=== PATIENT | female | born 1990 | race Caucasian/White ===

== ENCOUNTER 2022-07-02 10:19 | Outpatient (CLI) | payer BC | END 2022-07-02 12:17 | disposition home or self-care (01) | LOC: NST 10:19 | PROVIDERS: ATTEND Obstetrics & Gynecology | DX: Z34.83 Encounter for supervision of other normal pregnancy, third trimester (principal) ==

== ENCOUNTER 2022-07-09 14:12 | Inpatient (IN) | payer BC ==
[~2022-07-09] VITALS: Ht 167.6 cm; Wt 74.8 kg
[2022-07-12] MEDS ORDERED: PRENATABS RX T1 EACH PO (07:15)
== END 2022-07-14 14:32 | disposition home or self-care (01) | DRG 807 ==
LOC: EDUNIT# 14:45 → LDR 07-12 06:01 → OB/GYN 07-12 08:21
PROVIDERS: ADMIT Obstetrics & Gynecology Maternal & Fetal Medicine; ATTEND Obstetrics & Gynecology Maternal & Fetal Medicine
PROC: 10E0XZZ Delivery of Products of Conception, External Approach (ICD-10-PCS; principal; 2022-07-12)
PROC: 0UQG7ZZ Repair Vagina, Via Natural or Artificial Opening (ICD-10-PCS; 2022-07-12)
PROC: 4A1HXCZ Monitoring of Products of Conception, Cardiac Rate, External Approach (ICD-10-PCS; 2022-07-12)
DX: O71.4 Obstetric high vaginal laceration alone (principal); Z37.0 Single live birth; Z3A.39 39 weeks gestation of pregnancy; Z20.822 Contact with and (suspected) exposure to COVID-19

== ENCOUNTER 2024-03-15 10:03 | Outpatient (CLI) | payer BC ==
[~2024-03-15 10:03] MED LIST: PRENATABS RX T1 EACH PO
== END 2024-03-15 14:58 | disposition home or self-care (01) ==
LOC: NST 10:03
PROVIDERS: ATTEND Obstetrics & Gynecology
DX: Z34.83 Encounter for supervision of other normal pregnancy, third trimester (principal)

== ENCOUNTER 2024-03-21 22:02 | Inpatient (IN) | payer BC ==
[~2024-03-21] VITALS: Ht 167.6 cm; Wt 73.9 kg
[2024-03-21] VITALS (8 sets, daily range): BP systolic 118–140; BP diastolic 67–81
[2024-03-21] MEDS ORDERED: RINGERS SOLUTION,LACTATED 1,000 ML IV SCH (22:15)
[2024-03-21] MEDS ORDERED: CHLORHEXIDINE GLUCONATE 120 ML BOTTLE TOP SCH (22:45)
[2024-03-21] MEDS ORDERED: OXYTOCIN 1,000 ML IV SCH (22:45)
[2024-03-21] MEDS ORDERED: IBUprofen 400 MG TABLET PO PRN (22:45)
[2024-03-21] MEDS ORDERED: ERYTHROMYCIN BASE OPHT 1GM EACH TUBE OP ONE (23:15)
[2024-03-21 23:25] LABS: HEMATOCRIT 36.4 % (36.0-45.00); HEMOGLOBIN 13.1 g/dL (12.0-15.00); MEAN CELL VOLUME 87.7 fL (80.00-100.00); MEAN CORPUSCULAR HEMOGLOBIN 31.6 pg (27.00-32.0); MEAN CORPUSCULAR HGB CONC 36.1 g/dl (32.0-36.0); PLATELET COUNT 251 K/uL (150-450); RED BLOOD COUNT 4.15 M/uL (4.00-6.00)
[2024-03-21 23:31] LABS: INR < 0.93; PARTIAL THROMBOPLASTIN TIME 27.3 SECONDS (22.0-34.0); PROTHROMBIN TIME 9.8 SECONDS (9.0-11.5)
[2024-03-21 23:51] LABS: BILIRUBIN TOTAL 0.55 mg/dL (0.3-1.2); CREATININE SERUM 0.55 mg/dL (0.55-1.02); GFR 126.52; GLOBULINA 3.3 G/DL (2.4-3.5); POTASSIUM 3.77 mEq/L (3.5-5.1); TOTAL PROTEIN 6.3 gm/dL (6.4-8.2)
[2024-03-22 01:06] VITALS: BP 131/71
[2024-03-22 08:59] VITALS: BP 115/70
[2024-03-22] MEDS ORDERED: PNV,CALCIUM 72/IRON/FOLIC ACID 1 TAB TABLET PO SCH (09:00)
[2024-03-22 16:00] VITALS: BP 121/67
[2024-03-22] MEDS ORDERED: SENNA/DOCUSATE SODIUM 1 TAB TABLET PO SCH (21:00)
[2024-03-23 01:07] VITALS: BP 128/76
[2024-03-23 08:46] VITALS: BP 131/80
== END 2024-03-23 15:07 | disposition home or self-care (01) | DRG 807 ==
LOC: OB/GYN → LDR 22:02 → OB/GYN 23:24
PROVIDERS: Obstetrics & Gynecology Gynecology; ADMIT Obstetrics & Gynecology; ATTEND Obstetrics & Gynecology
PROC: 10E0XZZ Delivery of Products of Conception, External Approach (ICD-10-PCS; principal; 2024-03-21)
PROC: 4A1HXCZ Monitoring of Products of Conception, Cardiac Rate, External Approach (ICD-10-PCS; 2024-03-21)
DX: O80 Encounter for full-term uncomplicated delivery (principal); Z37.0 Single live birth; Z3A.39 39 weeks gestation of pregnancy; Z20.822 Contact with and (suspected) exposure to COVID-19